=== PATIENT | female | born 2000 | race African-American/Black ===

== ENCOUNTER 2018-01-27 14:15 | Emergency (ER) | payer OTHER ==
[2018-01-27] MEDS: IBUPROFEN 600 MG TAB PO (14:43)
== END 2018-01-27 16:01 | disposition home or self-care (01) ==
LOC: M ED 14:15
DX: S93.402A Sprain of unspecified ligament of left ankle, initial encounter (principal); X50.9XXA Other and unspecified overexertion or strenuous movements or postures, initial encounter; Y92.009 Unspecified place in unspecified non-institutional (private) residence as the place of occurrence of the external cause
CPT/HCPCS: 73610

== ENCOUNTER → 2019-04-12 | Outpatient (CLI) | payer OTHER ==
[~2019-04-12] MED LIST: IBUP-1022 PO; ISOVUE-370 76% 100ML VIAL (Q9967) As Ordered ONE
--- NOTE | 2019-04-12 14:40 | REP ---
History: The procedure was performed by HERMILA Iqbal, under the direct supervision of Dr. Siddiqui. The patient was referred for a hysterosalpingogram. The referring clinician catheterized the cervix and injected contrast the endometrial canal. The endometrial canal opacifies well and is normal in configuration with no definite contour abnormalities or filling defect. There is free low of contrast into both fallopian tubes, and there there is free intraperitoneal spillage bilaterally. Impression: 1. Bilateral fallopian tubes are patent. 2. Normal hysterosalpingogram. 0.0 minutes of fluoroscopy time was utilized for this procedure. Some fluoroscopic images are performed with last image hold technology. These images require no additional radiation. Reviewed by HERMILA Dang 04/12/2019 01:54 P Electronically Signed by Matthieu Siddiqui MD 04/12/2019 02:32 P
== END ==
LOC: M RADPRO 11:00
PROVIDERS: ATTEND Obstetrics & Gynecology
DX: N97.9 Female infertility, unspecified (principal)
CPT/HCPCS: 58340; 74740; Q9967

== ENCOUNTER 2019-04-30 18:58 | Emergency (ER) | payer OTHER ==
[~2019-04-30] VITALS: Ht 165.1 cm; Wt 79.7 kg
[~2019-04-30 18:58] MED LIST changes: -ISOVUE-370 76% 100ML VIAL (Q9967) As Ordered ONE
[2019-04-30] MEDS ORDERED: DOXY100C37 PO (20:56)
[2019-04-30 21:02] VITALS: BP 126/57
== END 2019-04-30 21:09 | disposition home or self-care (01) ==
LOC: M ED 18:58
DX: N61.1 Abscess of the breast and nipple (principal)